=== PATIENT | female | born 1950 | race African-American/Black ===

== ENCOUNTER → 2016-12-20 | Outpatient (CLI) | payer MEDICARE, BC | LOC: OD 14:18 | PROVIDERS: ATTEND Internal Medicine | DX: R07.9 Chest pain, unspecified (principal) | CPT/HCPCS: 71020 ==

== ENCOUNTER 2017-05-15 09:53 | Emergency (ER) | payer BC, MEDICARE ==
[2017-05-15] MEDS ORDERED: PREDNISONE 20 MG TABLET PO ONE (10:29)
--- NOTE | 2017-05-15 10:31 | ER Document Report ---
ED Medical Screen (RME) - General Chief Complaint: Breathing Difficulty Stated Complaint: DIFFICULTY BREATHING Time Seen by Provider: 05/15/17 10:23 Notes: This 67-year-old female patient comes emergency room complaining of a one-week history of shortness of breath which she ascribes to her asthma. 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 She reports she used to be on Symbicort but it seemed to stop working so her doctor switched her to Breo last week. She was on 1 week of prednisone 3 weeks ago and it seemed to help while she was taking it. She does seem a little dyspneic. Auscultating her lungs does not really reveal wheezes. I have greeted and performed a rapid initial assessment of this patient. A comprehensive ED assessment and evaluation of the patient, analysis of test results and completion of the medical decision making process will be conducted by additional ED providers. TRAVEL OUTSIDE OF THE [place] IN LAST 30 DAYS: No - Related Data Allergies/Adverse Reactions: Iodinated Contrast- Oral and IV Dye [IV Dye, Iodine Containing] Allergy (Severe , Verified 05/15/17 10:10) Past Medical History - Past Medical History Cardiac Medical History: Reports: Hx Hypercholesterolemia - meds x 20 years, Hx Hypertension - meds x 48 years, Hx Pulmonary Embolism - 1968 r/t BCP, Hx Heart Murmur Denies: Hx Atrial Fibrillation, Hx Congestive Heart Failure, Hx Coronary Artery Disease, Hx Heart Attack, Hx Peripheral Vascular Disease Pulmonary Medical History: Reports: Hx Asthma - last attack was prior to Rx home Neb Tx's 2006, Hx Pneumonia - 2006, thoracentisis,(1 liter) Denies: Hx Bronchitis, Hx COPD, Hx Respiratory Failure, Hx Sleep Apnea, Hx Tuberculosis Neurological Medical History: Denies: Hx Cerebrovascular Accident, Hx Seizures Endocrine Medical History: Reports: Hx Hypothyroidism - meds x 23. Denies: Hx Graves' Disease, Hx Hyperthyroidism Renal/ Medical History: Denies: Hx Ovarian Cysts, Hx Peritoneal Dialysis, Hx Pelvic Inflammatory Disease Malignancy Medical History: Reports: Hx Ovarian Cancer - 1992, mets 2006. Denies: Hx Breast Cancer, Hx Cervical Cancer, Hx Leukemia, Hx Lung Cancer Musculoskeltal Medical History: Reports Hx Arthritis, Denies Hx Fibromyalgia, Denies Hx Multiple Sclerosis, Denies Hx Muscular Dystrophy Psychiatric Medical History: Reports: Hx Depression - lived in [place] 07/22/01 , Hx Post Traumatic Stress Disorder - from 07/22 experience Denies: Hx Bipolar Disorder, Hx Dementia, Hx Schizophrenia Traumatic Medical History: Denies: Hx Fractures Infectious Medical History: Denies: Hx HIV Past Surgical History: Reports: Hx Hysterectomy. Denies: Hx Appendectomy, Hx Bowel Surgery, Hx Section, Hx Cholecystectomy, Hx Coronary Artery Bypass Graft, Hx Gastric Bypass Surgery, Hx Herniorrhaphy, Hx Mastectomy, Hx Pacemaker, Hx Tonsillectomy, Hx Tubal Ligation Physical Exam - Vital signs Vitals: Temp Pulse BP Pulse Ox 97.5 F 105 H 176/92 H 96 05/15/17 10:06 05/15/17 10:06 05/15/17 10:06 05/15/17 10:06 Course - Vital Signs Vital signs: Temp Pulse Resp BP Pulse Ox 97.5 F 105 H 28 H 176/92 H 96 05/15/17 10:06 05/15/17 10:06 05/15/17 10:07 05/15/17 10:06 05/15/17 10:06
[2017-05-15 10:49] LABS: ABSOLUTE BASOPHILS # (AUTO) 0.1 10^3/uL (0.0-0.2); ABSOLUTE EOSINOPHILS # (AUTO) 0.2 10^3/uL (0.0-0.6); ABSOLUTE LYMPHOCYTES (AUTO) 1.8 10^3/uL (0.5-4.7); ABSOLUTE MONOCYTES (AUTO) 0.5 10^3/uL (0.1-1.4); ABSOLUTE NEUT (AUTO) 4.3 10^3/uL (1.7-8.2); EOSINOPHILS % (AUTO) 3.1 % (0-6); HEMATOCRIT 37.5 % (36.0-47.0); HEMOGLOBIN 12.2 g/dL (12.0-15.5); HGB HCT DIFFERENCE -0.9; LYMPHOCYTES % (AUTO) 25.8 % (13-45); MEAN CORPUSCULAR HEMOGLOBIN 30.6 pg (27.0-33.4); MEAN CORPUSCULAR HGB CONC 32.6 g/dL (32.0-36.0); MEAN CORPUSCULAR VOLUME 94 fl (80-97); MONOCYTES % (AUTO) 7.2 % (3-13); RED CELL DISTRIBUTION WIDTH 15.6 % (11.5-14.0); SEGMENTED NEUTROPHILS % (AUTO) 62.9 % (42-78); WHITE BLOOD COUNT 6.9 10^3/uL (4.0-10.5)
[2017-05-15] MEDS ORDERED: IPRATROPIUM/ALBUTEROL 0.5-2.5 MG/3 ML AMPUL NEB ONE (11:04)
[2017-05-15 11:13] LABS: ALANINE AMINOTRANSFERASE 24 U/L (9-52); ALBUMIN 3.8 g/dL (3.5-5.0); ALKALINE PHOSPHATASE 82 U/L (38-126); ANION GAP 10 (5-19); ASPARTATE AMINO TRANSFERASE 24 U/L (14-36); BILIRUBIN,DIRECT 0.3 mg/dL (0.0-0.4); BLOOD UREA NITROGEN 18 mg/dL (7-20); CARBON DIOXIDE 30 mmol/L (22-30); CHLORIDE 99 mmol/L (98-107); CREATINE KINASE 163 U/L (30-135); CREATININE RESULT 1.02 mg/dL (0.52-1.25); GLUCOSE 203 mg/dL (75-110); POTASSIUM 3.3 mmol/L (3.6-5.0); SODIUM 138.9 mmol/L (137-145); TOTAL PROTEIN 7.3 g/dL (6.3-8.2)
--- NOTE | 2017-05-15 11:14 | ER Document Report ---
ED Respiratory Problem - General Chief Complaint: Breathing Difficulty Stated Complaint: DIFFICULTY BREATHING Time Seen by Provider: 05/15/17 10:23 Notes: The patient is a 67-year-old female, past medical history asthma, pleural effusion that required drainage, presents with 5 days of increasing shortness of breath. She was on a steroid course last week and felt slightly better. 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 Patient said that she is out of her albuterol treatments. She denies leg swelling, chest pain, nausea, vomiting, headache, fevers, rash, hemoptysis or back pain. TRAVEL OUTSIDE OF THE [place] IN LAST 30 DAYS: No - Related Data Allergies/Adverse Reactions: Iodinated Contrast- Oral and IV Dye [IV Dye, Iodine Containing] Allergy (Severe , Verified 05/15/17 10:10) Past Medical History - General Information source: Patient - Social History Smoking Status: Unknown if Ever Smoked Family History: Reviewed & Not Pertinent Patient has suicidal ideation: No Patient has homicidal ideation: No - Past Medical History Cardiac Medical History: Reports: Hx Hypercholesterolemia - meds x 20 years, Hx Hypertension - meds x 48 years, Hx Pulmonary Embolism - 1968 r/t BCP, Hx Heart Murmur Denies: Hx Atrial Fibrillation, Hx Congestive Heart Failure, Hx Coronary Artery Disease, Hx Heart Attack, Hx Peripheral Vascular Disease Pulmonary Medical History: Reports: Hx Asthma - last attack was prior to Rx home Neb Tx's 2006, Hx Pneumonia - 2006, thoracentisis,(1 liter) Denies: Hx Bronchitis, Hx COPD, Hx Respiratory Failure, Hx Sleep Apnea, Hx Tuberculosis Neurological Medical History: Denies: Hx Cerebrovascular Accident, Hx Seizures Endocrine Medical History: Reports: Hx Hypothyroidism - meds x 23. Denies: Hx Graves' Disease, Hx Hyperthyroidism Renal/ Medical History: Denies: Hx Ovarian Cysts, Hx Peritoneal Dialysis, Hx Pelvic Inflammatory Disease Malignancy Medical History: Reports: Hx Ovarian Cancer - 1992, mets 2006. Denies: Hx Breast Cancer, Hx Cervical Cancer, Hx Leukemia, Hx Lung Cancer Musculoskeltal Medical History: Reports Hx Arthritis, Denies Hx Fibromyalgia, Denies Hx Multiple Sclerosis, Denies Hx Muscular Dystrophy Psychiatric Medical History: Reports: Hx Depression - lived in [place] 07/22/01 , Hx Post Traumatic Stress Disorder - from 07/22 experience Denies: Hx Bipolar Disorder, Hx Dementia, Hx Schizophrenia Traumatic Medical History: Denies: Hx Fractures Infectious Medical History: Denies: Hx HIV Past Surgical History: Reports: Hx Hysterectomy. Denies: Hx Appendectomy, Hx Bowel Surgery, Hx Section, Hx Cholecystectomy, Hx Coronary Artery Bypass Graft, Hx Gastric Bypass Surgery, Hx Herniorrhaphy, Hx Mastectomy, Hx Pacemaker, Hx Tonsillectomy, Hx Tubal Ligation - Immunizations Hx Pneumococcal Vaccination: 05/20/13 Review of Systems - Review of Systems Notes: REVIEW OF SYSTEMS: CONSTITUTIONAL: -fevers, -chills EENT: -eye pain, -difficulty swallowing, -nasal congestion CARDIOVASCULAR:-chest pain, -syncope. RESPIRATORY: -cough, +SOB GASTROINTESTINAL: -abdominal pain, - nausea, -vomiting, -diarrhea GENITOURINARY: -dysuria, -hematuria MUSCULOSKELETAL: -back pain, -neck pain SKIN: -rash or skin lesions. HEMATOLOGIC: -easy bruising or bleeding. LYMPHATIC: -swollen, enlarged glands. NEUROLOGICAL: -altered mental status or loss of consciousness, -headache, - neurologic symptoms PSYCHIATRIC: -anxiety, -depression. ALL OTHER SYSTEMS REVIEWED AND NEGATIVE. Physical Exam - Vital signs Vitals: Temp Pulse BP Pulse Ox 97.5 F 105 H 176/92 H 96 05/15/17 10:06 05/15/17 10:06 05/15/17 10:05/15/17 10:06 - Notes Notes: PHYSICAL EXAMINATION: GENERAL: Well-appearing, well-nourished and in no acute distress. HEAD: Atraumatic, normocephalic. EYES: Pupils equal round and reactive to light, extraocular movements intact, sclera anicteric, conjunctiva are normal. ENT: nares patent, oropharynx clear without exudates. Moist mucous membranes. NECK: Normal range of motion, supple without lymphadenopathy LUNGS: No tachypnea. Decreased breath sounds in B/L lungs. HEART: Tachycardia. ABDOMEN: Soft, nontender, normoactive bowel sounds. No guarding, no rebound. No masses appreciated. EXTREMITIES: Normal range of motion, no pitting or edema. No cyanosis. NEUROLOGICAL: Cranial nerves grossly intact. Normal speech, normal gait. Normal sensory and motor exams. PSYCH: Normal mood, normal affect. SKIN: Warm, Dry, normal turgor, no rashes or lesions noted. Course - Re-evaluation Re-evalutation: High concern for PE due to shortness of breath, tachycardia and no wheezing. Patient returned from VQ scan and I was alerted by nurse that patient began to have chest pain substernally, worsening shortness of breath and started to become diaphoretic. Immediately assessed patient and a repeat EKG was completed , which did not show any ST elevations. Pt provided with SL nitro due to BP 193/ 133 and chest pain. Pt began to bradycardia down and lost pulses. She went into PEA arrest and CPR was immediately started. A Code Blue was called and ACLS was started. Patient was intubated. Due to high concern for PE, TPA was given. Patient had multiple episodes of PEA and then ROSC, but would quickly go back to the PEA. She went into fine ventricular fibrillation and was defibrillated multiple times and Lidocaine was given. Patient then went into PEA arrest again and then after ~1 hour of coding pt, the decision was made to pronounce patient due to the low likelihood of meaningful brain recovery. See RN 's code notes for further details of code. Time of was 1505. - Vital Signs Vital signs: Temp Pulse Resp BP Pulse Ox 97.5 F 105 H 17 176/92 H 96 05/15/17 10:06 05/15/17 10:06 05/15/17 10:59 05/15/17 10:06 05/15/17 10:06 - Laboratory Result Diagrams: 05/15/17 10:33 05/15/17 10:33 Laboratory results interpreted by me: 05/15/17 05/15/17 05/15/17 10:33 10:33 10:33 RDW 15.6 H D-Dimer 1.59 H Potassium 3.3 L Est GFR (Non-Af Amer) 54 L Glucose 203 H Creatine Kinase 163 H NT-Pro-B Natriuret Pep 05/15/17 10:33 RDW D-Dimer Potassium Est GFR (Non-Af Amer) Glucose Creatine Kinase NT-Pro-B Natriuret Pep 6610 H - Diagnostic Test Radiology reviewed: Image reviewed, Reports reviewed Radiology results interpreted by me: V/Q scan: No PE - EKG Interpretation by Me EKG shows normal: Sinus rhythm, [place], Intervals, QRS Complexes, ST-T Waves Rate: Tachycardia Critical Care Note - Critical Care Note Total time excluding time spent on procedures (mins): 75 Discharge - Discharge Clinical Impression: Cardiac arrest Dyspnea Qualifiers: Dyspnea type: shortness of breath Qualified Code(s): R06.02 - Shortness of breath Disposition: Referrals: EDWIN SORIA MD [Primary Care Provider] - Follow up as needed
[2017-05-15 11:25] LABS: CREATINE KINASE MB 2.04 ng/mL (<4.55)
[2017-05-15 11:28] LABS: TROPONIN I 0.05 ng/mL
--- NOTE | 2017-05-15 12:56 | EKG REPORT ---
SEVERITY:- ABNORMAL ECG - SINUS TACHYCARDIA VENTRICULAR PREMATURE COMPLEX KAL[place]NA, CONSIDER BIATRIAL ABNORMALITIES LVH WITH SECONDARY REPOLARIZATION ABNORMALITY BORDERLINE PROLONGED QT INTERVAL : Confirmed by: Paulo Quinn MD 15-May-2017 12:56:22
[2017-05-15] MEDS ORDERED: NITROGLYCERIN 0.4 MG/TAB 25 TAB/BOTTLE ONE (14:11)
[2017-05-15] MEDS ORDERED: ALTEPLASE INJ 100 MG VIAL ONE (14:14)
--- NOTE | 2017-05-15 14:15 | RADIOLOGY REPORT (SQ) ---
EXAM DESCRIPTION: NM LUNG VENT/PERF SCAN COMPLETED DATE/TIME: 05/15/2017 2:03 pm REASON FOR STUDY: SOB, elevated d-dimer COMPARISON: TWO-VIEW CHEST 05/15/2017, 12/20/2016 RADIONUCLIDE AND DOSE: 5.2 millicuries TC-99m MAA Intravenous 32.2 millicuries TC-99m DTPA Inhaled aerosol TECHNIQUE: Eight views of the lungs acquired post ventilation of DTPA aerosol. Eight matching views of the lungs acquired following injection of MAA. LIMITATIONS: LIMITED VENTILATION SCAN FINDINGS: VENTILATION: Symmetric and homogeneous distribution of DTPA aerosol during ventilatory pha se. No significant areas of photopenia. PERFUSION: Perfusion images with normal homogenous activity and no wedge-shaped or segmental defects. No ventilation-perfusion mismatches. OTHER: Marked cardiomegaly. IMPRESSION: No perfusion defects worrisome for acute pulmonary emboli TECHNICAL DOCUMENTATION: JOB ID: [id number] [employer]- All Rights Reserved
[2017-05-15] MEDS ORDERED: CALCIUM GLUCONATE 1000 MG/10 ML INJ IV ONE ×2 (14:35→14:42)
[2017-05-15] MEDS ORDERED: SODIUM BICARBONATE 8.4% INJ 50 MEQ/50 ML DISP.SYRIN ONE ×2 (14:42→21:49)
[2017-05-15] MEDS ORDERED: EPINEPHRINE INJ/PF 1 MG/1 ML AMPULE ONE (14:49)
--- NOTE | 2017-05-15 15:14 | RADIOLOGY REPORT (SQ) ---
EXAM DESCRIPTION: CHEST PA/LAT COMPLETED DATE/TIME: 05/15/2017 10:53 am REASON FOR STUDY: dyspnea COMPARISON: July 2014 EXAM PARAMETERS: NUMBER OF VIEWS: two views TECHNIQUE: Digital Frontal and Lateral radiographic views of the chest acquired. RADIATION DOSE: NA LIMITATIONS: none FINDINGS: LUNGS AND PLEURA: There is blunting of the costophrenic angles and pleural changes along t he lower chest rios left greater than right consistent with pleural effusions. I cannot exclude a l oculated component. Ill-defined basilar densities are identified especially on the right which could represent atelectatic changes or pneumonic infiltrates. I cannot exclude asymmetric pulmonary edema . MEDIASTINUM AND HILAR STRUCTURES: No masses or contour abnormalities. HEART AND VASCULAR STRUCTURES: Cardiac silhouette remains enlarged and is unchanged in configuration. There is pulmonary vascular congestion. BONES: No acute findings. HARDWARE: None in the chest. OTHER: No other significant finding. IMPRESSION: Cardiomegaly with mild pulmonary vascular congestion. Bibasilar densities as noted abov e. Other findings as noted above TECHNICAL DOCUMENTATION: JOB ID: [id number]- All Rights Reserved
[2017-05-15 20:11] VITALS: BP 128/65
[2017-05-15] MEDS ORDERED: LIDOCAINE RTU 2 GM/D5W 250 ML (8 MG/ML) PREMIX IV ONE (21:49)
[2017-05-15] MEDS ORDERED: EPINEPHRINE INJ 1 MG/10 ML DISP.SYRIN ONE (21:49)
== END 2017-05-15 16:54 | disposition expired ==
LOC: ER 09:53
PROC: 0BH17EZ Insertion of Endotracheal Airway into Trachea, Via Natural or Artificial Opening (ICD-10-PCS; principal; 2017-05-15)
DX: I46.9 Cardiac arrest, cause unspecified (principal); R06.02 Shortness of breath
CPT/HCPCS: 31500; 93005; 94640; 99291; 99292; 92950; 96374; 96375; 36415; 82553; 82962; 82550; 85025; 80053; 84484; 85379; 83880; 71020; 78582; 93010; A9540; A9567; J0171; J2001; A9270 ×2; J3490; Q9969; J7512; J7620